=== PATIENT | male | born 1980 | race American Indian/Alaskan Native ===

== ENCOUNTER 2019-07-03 19:55 | Emergency (ER) | payer OTHER ==
[~2019-07-03] VITALS: Ht 180.3 cm; Wt 77.1 kg
[~2019-07-03 19:55] MED LIST: ALBU90OI INH; AZIT250 PO; HYDACE5 PO; NAPR500 PO; RXCLIN PO; SPACER IH; TRAM50 PO
[2019-07-03] MEDS ORDERED: IBUP400 PO (22:20)
[2019-07-03] MEDS ORDERED: HYDR1TAB94 PO (22:25)
== END 2019-07-03 22:37 | disposition home or self-care (01) ==
LOC: ER 19:55
DX: S20.211A Contusion of right front wall of thorax, initial encounter (principal); M54.6 Pain in thoracic spine; V43.52XA Car driver injured in collision with other type car in traffic accident, initial encounter
CPT/HCPCS: 71046; 99283-25

== ENCOUNTER 2019-08-08 14:21 | Emergency (ER) | payer OTHER ==
[~2019-08-08] VITALS: Ht 182.9 cm; Wt 77.1 kg
[~2019-08-08 14:21] MED LIST changes: +HYDR1TAB94 PO; +IBUP400 PO
[2019-08-08] MEDS ORDERED: PRAHYD1AE TOP (15:34)
[2019-08-08] MEDS ORDERED: Norco 5-325 Ta1 EACH PO (15:34)
[2019-08-08] MEDS ORDERED: METAMUCIL660 GM PO (15:34)
== END 2019-08-08 15:51 | disposition home or self-care (01) ==
LOC: ER 14:21
DX: K64.5 Perianal venous thrombosis (principal); Z79.899 Other long term (current) drug therapy
CPT/HCPCS: 36415; 82272; 99283